=== PATIENT | born 1950 ===

== ENCOUNTER 2025-04-16 11:05 | Outpatient (CLI) | payer MEDICARE, SELFPAY ==
--- NOTE | 2025-04-16 11:15 | RT.EKG_ITS ---
APPROVED REPORT Exam: Resting ECG Reason for Exam: SOB, peripheral edema Patient Location: O HR:72 bpm ECG Measurements Heart Rate 72 AXIS ME 147 P 7 QRSd 99 QRS 4 QT 404 T -12 QTc 443 Conclusion Sinus rhythm...normal P axis, V-rate 50- [address] abnormalities
== END 2025-04-16 11:06 | disposition home or self-care (01) ==
LOC: DI.CARD 11:22
PROVIDERS: PCP Nurse Practitioner Family; Referring Provider Nurse Practitioner Family; Visit Provider Internal Medicine Cardiovascular Disease
DX: R06.00 Dyspnea, unspecified (principal); R60.0 Localized edema; I34.0 Nonrheumatic mitral (valve) insufficiency; R06.02 Shortness of breath
CPT/HCPCS: 93010

== ENCOUNTER → 2025-04-16 11:05 | Outpatient (BNVA) | payer MEDICARE, SELFPAY | PROVIDERS: PCP Nurse Practitioner Family; Referring Provider Nurse Practitioner Family; Visit Provider Internal Medicine Cardiovascular Disease | DX: R60.0 Localized edema (principal); I34.0 Nonrheumatic mitral (valve) insufficiency; E66.9 Obesity, unspecified; I10 Essential (primary) hypertension | CPT/HCPCS: 99203; 93005 ==